=== PATIENT | male | born 1945 | race Caucasian/White ===

== ENCOUNTER → 2024-03-01 10:00 | Outpatient (BNVA) | payer OTHER, SELFPAY | PROVIDERS: Referring Provider Emergency Medicine; Visit Provider Specialist | DX: M54.12 Radiculopathy, cervical region (principal); M51.06 Intervertebral disc disorders with myelopathy, lumbar region; R25.1 Tremor, unspecified | CPT/HCPCS: 99204; 99205 ==

== ENCOUNTER → 2024-03-31 11:52 | Outpatient (BNVA) | payer OTHER, SELFPAY | PROVIDERS: Referring Provider Specialist; Visit Provider Specialist | DX: M54.12 Radiculopathy, cervical region (principal); M54.14 Radiculopathy, thoracic region; M51.06 Intervertebral disc disorders with myelopathy, lumbar region | CPT/HCPCS: 95885; 95910; 99214 ==

== ENCOUNTER 2024-05-09 10:21 | Outpatient (CLI) | payer OTHER, SELFPAY ==
--- NOTE | 2024-05-09 10:25 | MR_ITS ---
WS: [id number] MRI THORACIC SPINE WITHOUT CONTRAST TECHNIQUE: Sagittal T1, T2 and STIR imaging. Axial T2 imaging. Noncontrast imaging obtained. CLINICAL INFORMATION: RADICULOPATHY,THORACIC REGION COMPARISON: None. FINDINGS: Moderate thoracic kyphosis. A few incidental hemangiomas. Chronic anterior wedging at T6-T8 with endplate Schmorl's nodes. No high-grade central canal stenosis. Cord signal is normal. Moderate facet arthropathy lower thoracic spine. Partially visualized bilateral thyroid nodules. Normal caliber thoracic aorta. Small esophageal hiatal hernia. Adrenal glands are normal. Partially visualized RIGHT renal cyst. MR/MR thoracic spin wo con* [id number] IMPRESSION: 1. Moderate thoracic kyphosis. No acute compression. 2. Chronic anterior wedging with endplate Schmorl's nodes in the midthoracic s pine T6-T8. 3. Cord signal is normal. 4. Partially visualized bilateral thyroid nodules. 5. Small esophageal hiatal hernia. 6. Partially visualized 5 mm T2 hyperintense lesion in the pancreas. Recommend further evaluation with contrast-enhanced CT abdomen pelvis.
--- NOTE | 2024-05-09 10:25 | MR_ITS ---
WS: [id number] MRI LUMBAR SPINE NONCONTRAST TECHNIQUE: Sagittal T1, T2 and STIR imaging. Axial T1 and T2 imaging. CLINICAL INFORMATION: INTERVERTEBRAL DISC DISORDER W/MYELOPATHY COMPARISON: None. FINDINGS: Mild lumbar curve. No acute compression. No high-grade central canal stenosis. L1-L2: Mild facet arthropathy. Spinal canal and foramen are patent. L2-L3: Minimal annular bulging. Slight narrowing of the subarticular recess. Mild facet arthropathy. Foramen are patent. L3-L4: Mild annular bulging. Narrowing of the subarticular recess bilaterally with slight impingement on the traversing L4 nerve roots. Mild facet arthropathy. Mild LEFT greater than RIGHT foraminal narrowing with eccentric disc osteophyte complex. L4-L5: Mild annular bulging. Narrowing of the subarticular recess bilaterally. Mild facet arthropathy. Mild bilateral foraminal narrowing. L5-S1: Grade 1 anterolisthesis. Moderate facet arthropathy. Spinal canal and foramen are patent. Tarlov cyst in the sacrum. Visualized pelvic bony structures: Normal. Paravertebral soft tissues: Normal. Bilateral renal cysts. MR/MR lumbar spine wo con* [id number] IMPRESSION: 1. Mild lumbar curve. Grade 1 anterolisthesis L5 on S1. 2. Mild annular bulging with narrowing of the subarticular recess bilaterally L3-L4 and L4-L5. 3. Mild foraminal narrowing worse at LEFT L3-4, bilateral L4-5, 4. Moderate facet arthropathy L3-L5 worse at L5-S1.
== END 2024-05-09 10:22 | disposition home or self-care (01) ==
LOC: RAD 10:22
PROVIDERS: Visit Provider Specialist
DX: M51.06 Intervertebral disc disorders with myelopathy, lumbar region (principal); M54.14 Radiculopathy, thoracic region; M43.8X6 Other specified deforming dorsopathies, lumbar region; M43.17 Spondylolisthesis, lumbosacral region; M51.369 Other intervertebral disc degeneration, lumbar region without mention of lumbar back pain or lower extremity pain; M48.061 Spinal stenosis, lumbar region without neurogenic claudication; M47.896 Other spondylosis, lumbar region; M47.897 Other spondylosis, lumbosacral region; R93.7 Abnormal findings on diagnostic imaging of other parts of musculoskeletal system; M25.78 Osteophyte, vertebrae; G96.191 Perineural cyst; N28.1 Cyst of kidney, acquired; M40.294 Other kyphosis, thoracic region; M48.54XD Collapsed vertebra, not elsewhere classified, thoracic region, subsequent encounter for fracture with routine healing; M51.44 Schmorl's nodes, thoracic region; E04.2 Nontoxic multinodular goiter; K44.9 Diaphragmatic hernia without obstruction or gangrene; K86.9 Disease of pancreas, unspecified; D18.00 Hemangioma unspecified site; M47.894 Other spondylosis, thoracic region
CPT/HCPCS: 72146; 72148

== ENCOUNTER 2024-06-29 06:00 | Outpatient (CLI) | payer OTHER, SELFPAY | END 2024-06-29 06:01 | disposition home or self-care (01) | LOC: RAD 07-01 07:51 | PROVIDERS: Visit Provider Specialist | DX: M54.12 Radiculopathy, cervical region (principal); M51.06 Intervertebral disc disorders with myelopathy, lumbar region; M54.14 Radiculopathy, thoracic region; R25.1 Tremor, unspecified | CPT/HCPCS: 99214 ==

== ENCOUNTER 2024-08-30 15:19 | Outpatient (CLI) | payer OTHER, SELFPAY ==
--- NOTE | 2024-08-30 16:00 | MR_ITS ---
WS: [id number] MRI CERVICAL SPINE NONCONTRAST TECHNIQUE: Sagittal T1, T2 and STIR imaging. Axial T2, gradient, and fiesta imaging. CLINICAL INFORMATION: M54.12 - Radiculopathy, cervical region COMPARISON: None. FINDINGS: Exaggeration of normal cervical lordosis. Mild disc bulging at C4-C5 and C5-C6. Cord signal appears normal. C2-C3: Normal. C3-C4: Moderate facet arthropathy. Moderate LEFT bony foraminal narrowing. Spinal canal is patent. C4-C5: Disc osteophyte complex with endplate ridging. Moderate facet arthropathy. Mild to moderate LEFT bony foraminal narrowing. Spinal canal is patent. C5-C6: Disc osteophyte complex with endplate ridging. Mild to moderate LEFT and mild RIGHT bony foraminal narrowing. Moderate facet arthropathy. C6-C7: Disc osteophyte complex with endplate ridging. Moderate LEFT and mild RIGHT bony foraminal narrowing. Uncovertebral joint hypertrophy. C7-T1: Incidental perineural sleeve cysts. Spinal canal and foramen are patent. Partially visualized thyroid goiter larger on the LEFT. This can be followed up with ultrasound. MR/MR cervical spin wo con* [id number] IMPRESSION: 1. Partially visualized masslike multinodular thyroid goiter larger on the LE FT. This can be followed up with ultrasound. LEFT thyroid nodule measures 3.9 c m 2. No significant central canal stenosis. Cord signal is normal. 3. Mild to moderate bony foraminal narrowing LEFT C3-4, LEFT C4-5, LEFT C5-6 a nd LEFT C6-7 this appears worse at LEFT C3-4 and LEFT C5-6.
== END 2024-08-30 15:20 | disposition home or self-care (01) ==
PROVIDERS: Visit Provider Specialist
DX: M54.12 Radiculopathy, cervical region (principal); M51.06 Intervertebral disc disorders with myelopathy, lumbar region; M54.14 Radiculopathy, thoracic region
CPT/HCPCS: 72141

== ENCOUNTER → 2024-09-06 14:01 | Outpatient (BNVA) | payer OTHER, SELFPAY | PROVIDERS: Visit Provider Specialist | DX: G12.21 Amyotrophic lateral sclerosis (principal); M54.12 Radiculopathy, cervical region; M51.06 Intervertebral disc disorders with myelopathy, lumbar region; R25.1 Tremor, unspecified; M54.14 Radiculopathy, thoracic region | CPT/HCPCS: 99215 ==

== ENCOUNTER 2024-11-29 12:48 | Outpatient (CLI) | payer OTHER, SELFPAY | END 2024-11-29 12:49 | disposition home or self-care (01) | LOC: LAB 12:50 | PROVIDERS: Visit Provider Internal Medicine | DX: E04.1 Nontoxic single thyroid nodule (principal) | CPT/HCPCS: 36415; 84439; 84443; 84480 ==

== ENCOUNTER → 2025-01-03 11:56 | Outpatient (BNVA) | payer OTHER, SELFPAY | PROVIDERS: Visit Provider Specialist | DX: G12.21 Amyotrophic lateral sclerosis (principal); M54.12 Radiculopathy, cervical region; M51.06 Intervertebral disc disorders with myelopathy, lumbar region; M54.14 Radiculopathy, thoracic region | CPT/HCPCS: 99214 ==